=== PATIENT | male | born 1960 | race Hispanic/Latino ===

== ENCOUNTER 2018-03-24 23:11 | Emergency (ER) | payer OTHER ==
[2018-03-25] MEDS ORDERED: XYLOCAINE 2% INFILTRATI STA (01:44)
[2018-03-25] MEDS ORDERED: BOOSTRIX IM ONE (01:44)
[2018-03-25] MEDS ORDERED: NORCO 5/325 PO STA (01:45)
[2018-03-25] MEDS: LET TOPICAL TP STA ×2 (02:17→03:39)
--- NOTE | 2018-03-25 02:47 | Emergency Department Report ---
ED Animal Bite HPI - General Chief Complaint: Animal Bite Stated Complaint: CHIN INJURY Time Seen by Provider: 03/25/18 01:39 Source: patient Mode of arrival: Ambulatory Limitations: No Limitations - History of Present Illness Initial Comments: Reports sleeping with a dog on his shoulder and turned startled the dog caused an adult take a bite out of his chin. The patient reports the dog to the significant chunk out of his chin, which resulted in bleeding MD Complaint: animal bite -: Sudden, hour(s) (3) Location: face Animal: dog Animal Control Notified: No Description: household pet Mechanism: bite Pain Description: dull Context: possible exposure while a Associated Symptoms: bleeding. denies: discharge from wound, rash, loss of consciousness, diaphoresis, shortness of breath Treatments Prior to Arrival: pressure - Related Data Previous Rx's Medication Instructions Recorded Last Taken Type Acetaminophen/Codeine [Tylenol #3] 1 tab PO Q6H PRN #15 tab 03/25/18 Unknown Rx Amoxicillin/Potassium Clav 1 each PO BID #20 tablet 03/25/18 Unknown Rx [Augmentin 875-125 Tablet] Chlorhexidine Gluconate [Hibiclens] 10 ml TP BID #240 liquid 03/25/18 Unknown Rx Allergies Allergy/AdvReac Type Severity Reaction Status Date / Time No Known Allergies Allergy Verified 03/25/18 00:19 ED Review of Systems ROS: Stated complaint: CHIN INJURY Other details as noted in HPI ED Past Medical Hx - Past Medical History Previous Medical History?: No - Surgical History Past Surgical History?: Yes Hx Cholecystectomy: Yes Additional Surgical History: abd hernia - Social History Smoking Status: Never Smoker Substance Use Type: None - Medications Home Medications: Home Medications Medication Instructions Recorded Confirmed Last Taken Type Acetaminophen/Codeine [Tylenol #3] 1 tab PO Q6H PRN #15 tab 03/25/18 Unknown Rx Amoxicillin/Potassium Clav 1 each PO BID #20 tablet 03/25/18 Unknown Rx [Augmentin 875-125 Tablet] Chlorhexidine Gluconate [Hibiclens] 10 ml TP BID #240 liquid 03/25/18 Unknown Rx ED Physical Exam - General Limitations: No Limitations General appearance: alert, in no apparent distress - Head Head exam: Present: atraumatic, normocephalic - Eye Eye exam: Present: normal appearance, PERRL, EOMI. Absent: scleral icterus Pupils: Present: normal accommodation - ENT ENT exam: Present: normal exam, mucous membranes moist, TM's normal bilaterally - Neck Neck exam: Present: normal inspection, full ROM - Respiratory Respiratory exam: Present: normal lung sounds bilaterally. Absent: respiratory distress, rales - Cardiovascular Cardiovascular Exam: Present: regular rate, normal rhythm. Absent: systolic murmur, diastolic murmur, rubs, gallop - GI/Abdominal GI/Abdominal exam: Present: soft, normal bowel sounds - Rectal Rectal exam: Present: deferred - Extremities Exam Extremities exam: Present: normal inspection - Back Exam Back exam: Present: normal inspection - Neurological Exam Neurological exam: Present: alert, oriented X3 - Psychiatric Psychiatric exam: Present: normal affect, normal mood - Skin Skin exam: Present: warm, dry, normal color. Absent: intact (irregular jagged skin avulsion laceration to the chin with bleeding noted. Tender to the touch.Involving the intraoral region or the vermilion border. No no blood vessels involved.), rash ED Course Vital Signs 03/25/18 00:13 Temperature 98.3 F Pulse Rate 73 Respiratory 18 Rate Blood Pressure 116/81 O2 Sat by Pulse 98 Oximetry - Laceration /Wound Repair Face Wound Location: face (Shan) Wound Length (cm): 2 Wound's Depth, Shape: irregular, flap Betadine Prep?: Yes Anesthesia: 1% Lidocaine Wound Debrided: minimal Wound Repaired With: sutures Suture Size/Type: 5:0 Number of Sutures: 5 Sterile Dressing Applied?: Yes Critical care attestation.: If time is entered above; I have spent that time in minutes in the direct care of this critically ill patient, excluding procedure time. ED Disposition Clinical Impression: Dog bite of chin Disposition: DC-01 TO HOME OR SELFCARE Is pt being admited?: No Does the pt Need Aspirin: No Condition: Stable Prescriptions: Acetaminophen/Codeine [Tylenol #3] 1 tab PO Q6H PRN #15 tab PRN Reason: Pain Amoxicillin/Potassium Clav [Augmentin 875-125 Tablet] 1 each PO BID #20 tablet Chlorhexidine Gluconate [Hibiclens] 10 ml TP BID #240 liquid Referrals: MIHIR SWEENEY MD [Primary Care Provider] - 3-5 Days (Evaluation for suture removal in 7 days)
[2018-03-25 03:38] VITALS: BP 120/66
== END 2018-03-25 03:41 | disposition home or self-care (01) ==
LOC: ED 23:11
DX: S01.85XA Open bite of other part of head, initial encounter (principal); Z90.49 Acquired absence of other specified parts of digestive tract; W54.0XXA Bitten by dog, initial encounter; Y93.89 Activity, other specified; Y99.8 Other external cause status; Y92.89 Other specified places as the place of occurrence of the external cause
CPT/HCPCS: 90471; 90715; 99283